=== PATIENT | female | born 1950 | race African-American/Black ===

== ENCOUNTER 2018-11-05 23:14 | Emergency (ER) | payer SELFPAY ==
[~2018-11-05] VITALS: Ht 165.1 cm; Wt 81.6 kg
[~2018-11-05 23:14] MED LIST: AUGMENTIN 875-1 EAC1 ORAL; BACTRIM DS TAB1 EAC1 ORAL; ENTEX T 60-3751 EACH PO; HYDROGEL3000 GM TOPIC; IBUPROFEN800 MG ORAL
[2018-11-05 23:30] VITALS: BP 175/85
--- NOTE | 2018-11-05 23:30 | NUR ---
ER Nurse Note: Pt came from home c/o joint pain. Pt stated this is a chronic problem but is worse. Pt stated bilateral elbows, knees, foot, and lower back pain with 9/10 pain. Pt denies trauma, skin intact. Pt able to ambulate. Pt able to move all extremities. [facility] to [facility].
--- NOTE | 2018-11-06 00:18 | Emergency Room Report ---
History of Present Illness General Chief Complaint: Pain Source: Patient Present Illness HPI This is a 68-year-old female who presents for evaluation after a fall yesterday. Patient states she was wearing flip-flops when her right foot caught and inverted on the ground causing her to fall forward onto her wrists and knees. There was no head injury or loss of consciousness. She was able to get up and ambulate under her own power. She noted worsening pain and soreness in the wrists, ankles and in the left foot as well as worsening of her chronic back pain. She denies any pain radiating from the back in the legs, saddle anesthesia, urinary retention, fecal incontinence, weakness in the lower extremities. She has been using Tylenol at home without significant improvement. She denies any obvious effusion, skin breakdown or limitation in range of motion. PMH: Hypertension, arthritis, chronic back pain PSH: None Allergies: Codeine Social Hx: Denies tobacco, alcohol or drug use Allergies: Uncoded Allergies: CODIENE (Allergy, Unknown, 06/28/15) Patient History Last Menstrual Period: n/a Nursing Documentation-[facility] Past Medical History: No History, Except For Hx Hypertension: Yes Review of Systems All Other Systems: negative except mentioned in HPI Physical Exam Vital Signs Date Time Temp Pulse Resp B/P (MAP) Pulse Ox O2 Delivery O2 Flow Rate FiO2 11/05/18 23:21 98.2 58 18 175/85 (115) 96 Room Air General: Awake and alert, no acute distress HEENT: NC/AT. EOMI. Neck: Supple, trachea midline Resp: Normal work of breathing. Abdomen: Abdomen is soft, nondistended. Nontender Skin: Intact. No abrasions, laceration or rash over the exposed skin MSK: Normal tone and bulk. Moving all extremities. No obvious deformity. Mild tenderness to palpation over the right patella without obvious deformity or surrounding effusion. The knees are stable bilaterally without varus or valgus laxity. There is tenderness over the base of the first toe on the right foot without obvious effusion or deformity. Patient is ambulating steadily. There is full range of motion in the upper extremities at the elbow, wrists and elbows bilaterally though there is some tenderness palpation over the dorsum of the right wrist without effusion. Neuro: Awake and alert. Mentating appropriately. Sensation is intact over the dermatomes of the upper and lower extremities. Back/Spine: No midline tenderness in the cervical, thoracic spine. There is some midline tenderness in the lumbosacral spine without obvious step-off or deformity. Moderate paraspinal tenderness as well in the lumbosacral spine. Medical Decision Making Diagnostic Impression: Primary Impression: Back pain Additional Impression: Knee contusion ER Course 68-year-old female presents for evaluation of joint pain after a fall. Overall , her physical exam is largely reassuring though she does have tenderness over the dorsum of the right wrist, over the right patella and in the right foot.. Will obtain x-rays of the region as well as a lumbosacral x-ray. She has no red flag syndrome cauda equina otherwise. Will give NSAIDs for pain. I anticipate discharge home presuming negative imaging. Ambulate without difficulty in the emergency department. Other X-Ray Diagnostic Results Other X-Ray Diagnostic Results #1: X-Ray ordered: Foot # of Views/Limited Vs Complete: 3 View Indication: Pain EP Interpretation: Yes Interpretation: no dislocation, no soft tissue swelling, no fractures Impression: Other - Arthritic changes, no obvious fracture Electronically Signed by: Electronically signed by Dr. José Miguel Tafoya Other X-Ray Diagnostic Results #2: X-Ray ordered: Right knee # of Views/Limited Vs Complete: 3 View Indication: Pain EP Interpretation: Yes Interpretation: no dislocation, no soft tissue swelling, no fractures Impression: Other - No fracture Electronically Signed by: Signature Other X-Ray Diagnostic Results #3: X-Ray ordered: Wrist # of Views/Limited Vs Complete: 3 View Indication: Pain Interpretation: no dislocation, no soft tissue swelling, no fractures Impression: Other - [place] changes, no fracture Electronically Signed by: Signature Other X-Ray Diagnostic Results #4: X-Ray ordered: Lumbar spine # of Views/Limited Vs Complete: 2 View Indication: Pain PA Xray: Interpretation reviewed Interpretation: no fractures Electronically Signed by: Electronically signed by Dr. José Miguel Tafoya Reevaluation Time: 00:59 Last Vital Signs Date Time Temp Pulse Resp B/P (MAP) Pulse Ox O2 Delivery O2 Flow Rate FiO2 11/05/18 23:21 98.2 58 18 175/85 (115) 96 Room Air Status: unchanged Reevaluation Impression No obvious fracture or other pathology seen on x-ray aside from arthritic changes in the feet, knees and wrist. No obvious compression fracture in the lumbar spine. The patient was found sleeping comfortably on my reevaluation. She will be discharged home to continue using NSAIDs, ice for her contusions. Provided clinics in the area where she can follow-up. We discussed reasons to return to the emergency department as well as red flag symptoms of cauda equina. She understands and agrees with this treatment plan will be discharged home. Please note that this report is being documented using [employer] technology. This can lead to erroneous entry secondary to incorrect interpretation by the dictating instrument. Disposition: HOME, SELF-CARE Condition: Stable José Miguel Tafoya MD Nov 06, 2018 00:18
[2018-11-06 01:05] VITALS: BP 175/85
--- NOTE | 2018-11-06 01:05 | NUR ---
ER Nurse Note: Pt seen, treated, medically cleared for discharge by ERMD. Discharge instuctions and prescriptions given with repeat verbalization by pt. Emphasized to follow up with primay care provider; take whole course of medication. Explained each medication. All orders completed per ERMD orders. Pt a&ox4, VSS, no signs of distress. ID band removed. All questions answered per pt's questions. Pt left with all belongings, left with own transportation.
--- NOTE | 2018-11-06 01:59 | Diagnostic Imaging Report ---
EXAM: XR Right Knee, 3 views CLINICAL HISTORY: PAIN TECHNIQUE: Three views of the right knee. COMPARISON: No relevant prior studies available. FINDINGS: Bones/joints: No acute fracture. No dislocation. Severe lateral compartment and patellofemoral compartment and moderate medial compartment joint space loss and mild spurring. Soft tissues: Unremarkable. IMPRESSION: No acute findings. Tricompartmental osteoarthrosis.
--- NOTE | 2018-11-06 02:21 | Diagnostic Imaging Report ---
EXAM: XR Right Foot Complete, 3 or More Views CLINICAL HISTORY: PAIN TECHNIQUE: Frontal, lateral and oblique views of the right foot. COMPARISON: No relevant prior studies available. FINDINGS: Bones/joints: No acute fracture. No dislocation. Soft tissues: Unremarkable. No radiopaque foreign body. IMPRESSION: No acute findings.
--- NOTE | 2018-11-06 02:29 | Diagnostic Imaging Report ---
EXAM: XR Right Wrist Complete, 2 Views CLINICAL HISTORY: PAIN TECHNIQUE: Frontal, lateral views of the right wrist. COMPARISON: No relevant prior studies available. IMPRESSION: No acute fracture or subluxation. Moderate to severe degenerative changes at the joint space between the radius and lunate. There is also mild degenerative changes at the radioulnar joint space.
--- NOTE | 2018-11-06 02:30 | Diagnostic Imaging Report ---
EXAM: XR Lumbar Spine, 2 or 3 Views CLINICAL HISTORY: PAIN TECHNIQUE: Frontal and lateral views of the lumbar spine. COMPARISON: No relevant prior studies available. IMPRESSION: No acute fracture or subluxation. Mild degenerative changes in the lower lumbar spine.
== END 2018-11-06 01:05 | disposition home or self-care (01) ==
LOC: EMR 23:40
DX: M54.9 Dorsalgia, unspecified (principal); S80.01XA Contusion of right knee, initial encounter; M25.562 Pain in left knee; M25.561 Pain in right knee; M25.532 Pain in left wrist; M25.531 Pain in right wrist; Z88.6 Allergy status to analgesic agent; I10 Essential (primary) hypertension; M19.90 Unspecified osteoarthritis, unspecified site; G89.29 Other chronic pain
CPT/HCPCS: 72020; 99284

== ENCOUNTER 2020-01-13 20:34 | Emergency (ER) | payer SELFPAY ==
[~2020-01-13] VITALS: Ht 165.1 cm; Wt 77.1 kg
[2020-01-13 20:50] VITALS: BP 158/78
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
[2020-01-13] MEDS ORDERED: CYCLOBENZAPRINE10 MG ORAL (21:00)
[2020-01-13] MEDS ORDERED: IBUPROFEN600 M1 ORAL (21:00)
[2020-01-13] MEDS ORDERED: LIDODERM700 M1 TOPIC (21:00)
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
[2020-01-13 21:05] VITALS: BP 158/78
--- NOTE | 2020-01-13 21:05 | NUR ---
ER DISCHARGE NOTE: Patient is cleared to be discharged per ERMD. Pt is aox4, on room air, with stable vital signs. Pt was given dc and prescription instructions. Pt was able to verbalize understanding; instructed pt to follow up with primary care physcian within one week. Resources provided to follow up care. Pt ID band removed. Pt is able to ambulate with steady gait. Pt took all belongings.
== END 2020-01-13 21:05 | disposition home or self-care (01) ==
LOC: EMR 20:55
DX: S16.1XXA Strain of muscle, fascia and tendon at neck level, initial encounter (principal); I10 Essential (primary) hypertension; Z88.6 Allergy status to analgesic agent; X58.XXXA Exposure to other specified factors, initial encounter; Y92.9 Unspecified place or not applicable
CPT/HCPCS: 99282